=== PATIENT | female | born 1995 | race Caucasian/White ===

== ENCOUNTER 2017-03-17 10:08 | Emergency (ER) | payer OTHER ==
[~2017-03-17] VITALS: Ht 154.9 cm; Wt 115.5 kg
[~2017-03-17 10:08] MED LIST: ASCO1CHW13 PO; CETI10TA84 PO; MONT1TAB3 PO; ONDA4TAB7 SL
[2017-03-17 10:15] VITALS: TEMP 36.5; Ht 154.9 cm; Wt 115.5 kg
[2017-03-17] MEDS ORDERED: IBUPROFEN 600 MG TAB PO STA (10:24)
[2017-03-17] MEDS ORDERED: LORAZEPAM 1 MG TAB PO STA (10:24)
[2017-03-17] MEDS ORDERED: IBUP-1459 PO (10:30)
[2017-03-17] MEDS ORDERED: MEDR5TAB PO (10:37)
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
[2017-03-17 11:55] VITALS: BP 154/99; PULSE 95; O2SAT 96
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
== END 2017-03-17 11:58 | disposition home or self-care (01) ==
LOC: EDBD 10:08 → C.EDA 10:12
DX: R51 Headache (principal); M54.5 Low back pain; M54.2 Cervicalgia; V43.52XA Car driver injured in collision with other type car in traffic accident, initial encounter; F41.9 Anxiety disorder, unspecified; Z79.899 Other long term (current) drug therapy

== ENCOUNTER → 2017-05-30 | Outpatient (CLI) | payer OTHER ==
[~2017-05-30] MED LIST changes: -ASCO1CHW13 PO; +IBUP-1459 PO; +MEDR5TAB PO; -MONT1TAB3 PO; -ONDA4TAB7 SL
== END | disposition home or self-care (01) ==
LOC: C.LABSPEC 17:20
PROVIDERS: ATTEND Physician Assistant
DX: N89.8 Other specified noninflammatory disorders of vagina (principal)